=== PATIENT | male | born 1955 | race Caucasian/White ===

== ENCOUNTER 2023-06-11 05:56 | Day surgery (SDC) | payer MEDICARE ==
[2023-06-09 11:37] VITALS: BMI 38.5
[2023-06-09 12:41] LABS: Hematocrit 50.3 % (38.8-50.0); Hemoglobin 16.6 g/dL (13.5-17.5); Mean Corpuscular Hemoglobin 33.3 pg (27.0-33.0); Mean Corpuscular Volume 100.8 fl (81.2-95.1); Platelet Count 265 10x3/uL (150-450); RBC Distribution Width 13.8 % (11.5-14.5); Red Blood Cell (RBC) Count 4.99 10x6/uL (4.32-5.72); White Blood Cell (WBC) Count 10.2 10x3/uL (3.5-10.5)
[2023-06-09 13:03] LABS: INR-International Normal Ratio 1.1; Prothrombin Time 11.7 sec (9.5-12.1)
[2023-06-09 13:09] LABS: Anion Gap 21 mmol/L (10-20); BUN (Urea Nitrogen) 22 mg/dL (8.4-25.7); Calc. Creatinine Clearance 101 mL/min (70-130); Calcium 9.5 mg/dL (7.8-10.44); Carbon Dioxide 19 mmol/L (23-31); Chloride 108 mmol/L (98-107); Estimated GFR 61; Glucose 87 mg/dL (80-115); Sodium 143 mmol/L (136-145)
[2023-06-11] MEDS ORDERED: Heparin 10,000 UNITS/ 10 ML VIAL ONE (06:40)
[2023-06-11] MEDS ORDERED: Heparin 25,000 units/D5W 0 ML ONE (06:40)
[2023-06-11] MEDS ORDERED: Protamine Sulfate 50 MG/5 ML VIAL ONE (06:40)
[2023-06-11] MEDS ORDERED: Phenylephrine 10 MG/ML VIAL ONE (07:14)
[2023-06-11] MEDS ORDERED: fentaNYL 50 mcg/mL 1 mL Vial ONE (07:14)
[2023-06-11] MEDS ORDERED: Vasopressin 20 UNITS/ML VIAL ONE (07:14)
[2023-06-11] MEDS ORDERED: SUGAMMADEX SODIUM 200 MG/2 ML VIAL ONE (07:14)
[2023-06-11] MEDS ORDERED: Sevoflurane 250 ML INH ANEST BOTTLE ONE (07:14)
[2023-06-11] MEDS ORDERED: Lidocaine 1% PF 5 ML VIAL ONE (08:05)
[2023-06-11] MEDS ORDERED: PROPOFOL 200 MG/20 ML VIAL ONE (08:05)
[2023-06-11] MEDS ORDERED: PHENYLEPHRINE-NS 100 MCG/ML 10 ML SYRINGE ONE (08:05)
[2023-06-11] MEDS ORDERED: Rocuronium Bromide 10 MG/ML (10ML VIAL) ONE (08:05)
[2023-06-11] MEDS ORDERED: Ondansetron PF 4 MG/2 ML Vial ONE (08:05)
[2023-06-11] MEDS ORDERED: DOPamine 400 MG/D5W 250 ML 250 ML ONE (09:36)
== END 2023-06-11 13:45 | disposition home or self-care (01) ==
LOC: SDC 05:56
PROVIDERS: ATTEND Internal Medicine Cardiovascular Disease
DX: I48.3 Typical atrial flutter (principal); E11.9 Type 2 diabetes mellitus without complications; I10 Essential (primary) hypertension; I25.10 Atherosclerotic heart disease of native coronary artery without angina pectoris; E78.00 Pure hypercholesterolemia, unspecified; Z79.01 Long term (current) use of anticoagulants; Z87.891 Personal history of nicotine dependence; Z79.899 Other long term (current) drug therapy; Z90.89 Acquired absence of other organs; Z87.19 Personal history of other diseases of the digestive system
CPT/HCPCS: 80048; 85027; 85610; 85730; 93005; 93312; 93613; 93621; 93653; C1732; C1760; C1730; C1894; J1265; J1644; J2370; J2405; J2704; J2720; J3010